=== PATIENT | female | born 1975 | race Two or more races ===

== ENCOUNTER 2018-09-05 00:23 | Emergency (ER) | payer SELFPAY ==
[~2018-09-05] VITALS: Ht 152.4 cm; Wt 68.0 kg
[2018-09-05 00:30] VITALS: BP 109/79
== END 2018-09-05 01:15 | disposition left against medical advice (07) ==
LOC: ER 00:29
DX: R06.02 Shortness of breath (principal); Z53.21 Procedure and treatment not carried out due to patient leaving prior to being seen by health care provider